=== PATIENT | female | born 1955 | race Caucasian/White ===

== ENCOUNTER → 2016-10-26 | Outpatient (CLI) | payer MEDICARE | LOC: SL 20:52 | PROVIDERS: ATTEND Family Medicine | DX: G47.33 Obstructive sleep apnea (adult) (pediatric) (principal); I10 Essential (primary) hypertension; R06.83 Snoring ==

== ENCOUNTER → 2016-11-16 | Outpatient (CLI) | payer MEDICARE | LOC: SL 20:30 | PROVIDERS: ATTEND Family Medicine | DX: G47.33 Obstructive sleep apnea (adult) (pediatric) (principal) ==

== ENCOUNTER → 2019-09-05 | Outpatient (CLI) | payer MEDICARE ==
--- NOTE | 2019-09-05 16:54 | MAM ---
EXAM DESCRIPTION: 3D Screening BILATERAL : Digital Mammography. CLINICAL HISTORY: 63 years Female ANNUAL SCREENING . No complaints. No personal history of breast cancer. Mother with breast cancer unknown age. Remote family history of breast cancer. Menarche age 13. Childbirth age 21. Menopause age 37 no HRT. Lifetime risk of developing breast cancer (Tyrer-Cuzick model)(%): COMPARISON: 2-D digital screening bilateral mammography. 08 September 2010. Prior report not available. TECHNIQUE: Bilateral CC and MLO projection full-field images, digital tomosynthesis mammographic technique Bilateral digital 2-D full-field MLO images. CAD not available for tomosynthesis or 2-D images. FINDINGS: The breast parenchymal density pattern is: Heterogeneously dense breast tissue, which may obscure small masses. No skin thickening or nipple retraction. Multiple marker superior lateral posterior right breast near the axilla. Round mass density almost 1 cm diameter stable in the upper outer quadrant middle third right breast. Bilateral solitary microcalcifications, which have increased since the prior study. Focal asymmetry anterior superior left breast stable since the prior study. Partially circumscribed mass and partially ill-defined margins middle third left breast approximately 8 cm from the nipple. No definite calcifications.. IMPRESSION: BI-RADS CATEGORY: 0 - INCOMPLETE- Need additional imaging evaluation. FOLLOW-UP: Recall for additional imaging: Bilateral full-field LM projection 2-D and tomosynthesis images. Bilateral directed breast ultrasound to the regions of interest. Written communication concerning the IMPRESSION and Follow-up, will be mailed to the patient and referring health care provider. Electronically signed by: Wiley Byrnes MD 09/05/2019 4:53 PM RECORD CLERK
== END ==
LOC: MAMMO 08:00
PROVIDERS: ATTEND Obstetrics & Gynecology
DX: Z12.31 Encounter for screening mammogram for malignant neoplasm of breast (principal)

== ENCOUNTER → 2019-09-18 | Outpatient (CLI) | payer MEDICARE ==
--- NOTE | 2019-09-18 16:28 | US ---
EXAM DESCRIPTION: 3D Diagnostic, Bilateral (accession [id number]), Breast,Bilateral (accession [id number]): Ultrasound CLINICAL HISTORY: 63 yearsFemaleABNORMAL MAMMO . Follow-up abnormal screening. No personal history of breast cancer. Mother with breast cancer. Remote family history of breast and ovarian cancer. Menarche age 13. Childbirth age 21. Menopause age 30. No HRT Lifetime risk of developing breast cancer (Tyrer-Cuzick model)(%): 6.0. COMPARISON: Bilateral screening digital breast tomosynthesis third of September 2019. TECHNIQUE: Bilateral LM projection full-field images, digital tomosynthesis technique. Bilateral 2-D digital full-field images: CC and LM projections. CAD not available. Transcutaneous scanning of the bilateral breasts utilizing campos-scale and Doppler modes. Scanning performed by the contribution solicitor and Dr. Byrnes. FINDINGS: The breast parenchymal density pattern is: Heterogeneously dense breast tissue, which may obscure small masses. No skin thickening or nipple retraction . Mass density or densities at the 9:30 position of the middle third of the right breast approximately 7 cm from the nipple. No abnormal microcalcifications. Focal asymmetry in the middle third of the left breast approximately 6 cm from the nipple slightly medial to the posterior nipple line. No abnormal microcalcifications. Ultrasound: Scanning at the 9:00 sector of the middle third right breast 6 cm from the nipple. Hypoechoic circumscribed object with eccentric echogenic hilum consistent with a lymph node. Wider than tall orientation with no posterior features and nonvascular. Dimensions are 8.6 x 5.4 x 5.3 mm. Anechoic circumscribed object in the adjacent tissues nonvascular with posterior acoustic enhancement measuring 7.1 x 6.9 mm consistent with a cyst. A second lymph node with wider than tall orientation and posterior acoustic enhancement measures 7.8 x 7.3 mm. Nonvascular. Scanning of the left breast 7 cm from the nipple lateral and medial to the posterior nipple line with no dominant solid mass or distinct cyst. No parenchymal edema or large calcifications. No overlying skin changes. IMPRESSION: Benign exam. BIRAD CATEGORY: 2 BENIGN FINDINGS. RECOMMENDATIONS: FOLLOW UP: Return to routine digital bilateral mammographic screening, one year interval from September 2019. Written communication explaining the IMPRESSION and follow-up, will be mailed to the patient and referring health care provider. The FINDINGS and the FOLLOW-UP plan were reviewed in person with the patient after the examination. According to the [employer], yearly mammograms are recommended starting at age 40 and continuing as long as a woman is in good health. Any breast change noted on a breast self-exam should be reported promptly to the patient's healthcare provider. Breast MRI is recommended for women with an approximately 20-25% or greater lifetime risk of breast cancer, including women with a strong family history of breast or ovarian cancer and women who have been treated for Hodgkin's disease. A negative mammographic report should not delay tissue diagnosis in patients with significant clinical history or physical findings. Extremely dense breast tissue limits the sensitivity of digital mammography. Electronically signed by: Wiley Byrens MD 09/18/2019 4:26 PM [facility]
== END ==
LOC: MAMMO 10:00
PROVIDERS: ATTEND Obstetrics & Gynecology
DX: R92.8 Other abnormal and inconclusive findings on diagnostic imaging of breast (principal)
CPT/HCPCS: 76641; 77066; G0279

== ENCOUNTER → 2020-07-03 | Outpatient (CLI) | payer MEDICARE | LOC: GMA MATASK 11:03 | PROVIDERS: ATTEND Family Medicine | DX: I10 Essential (primary) hypertension (principal); E11.9 Type 2 diabetes mellitus without complications ==

== ENCOUNTER → 2020-11-07 | Outpatient (CLI) | payer MEDICARE ==
--- NOTE | 2020-11-07 17:19 | MAM ---
EXAM DESCRIPTION: 3D Screening BILATERAL : Digital Mammography. CLINICAL HISTORY: 65 years Female screening . No complaints. Mother with breast cancer age 55. Sister with cervical cancer age 28. Menarche age 13. Childbirth age 21. Hysterectomy age unknown. No HRT. Lifetime risk of developing breast cancer (Tyrer-Cuzick model)(%): 13.2. COMPARISON: Bilateral screening digital breast tomosynthesis September 2019 and bilateral diagnostic breast tomosynthesis same month. TECHNIQUE: Bilateral CC and MLO projection full-field images, digital tomosynthesis mammographic technique. Bilateral digital 2-D full-field MLO images. CAD available for 2-D images. FINDINGS: The breast parenchymal density pattern is: Scattered areas of fibroglandular density. Solitary microcalcifications. Circumscribed mass density upper outer quadrant middle third right breast stable. No skin thickening or nipple retraction No new focal, stellate mass or density, focal asymmetry , and no suspicious microcalcifications bilaterally. Stable mammograms compared to prior study. IMPRESSION: Benign exam. BIRAD CATEGORY: 2 BENIGN FINDINGS. RECOMMENDATIONS: FOLLOW UP: Routine digital bilateral mammographic screening, one year interval from November 2020. Written communication explaining the IMPRESSION and follow-up, will be mailed to the patient and referring health care provider. According to the [employer], yearly mammograms are recommended starting at age 40 and continuing as long as a woman is in good health. Any breast change noted on a breast self-exam should be reported promptly to the patient's healthcare provider. Breast MRI is recommended for women with an approximately 20-25% or greater lifetime risk of breast cancer, including women with a strong family history of breast or ovarian cancer and women who have been treated for Hodgkin's disease. A negative mammographic report should not delay tissue diagnosis in patients with significant clinical history or physical findings. Extremely dense breast tissue limits the sensitivity of digital mammography. Electronically signed by: Wiley Byrnes MD 11/07/2020 5:17 PM FILM RENTAL CLERK
== END ==
LOC: MAMMO 13:32
PROVIDERS: ATTEND Obstetrics & Gynecology
DX: Z12.31 Encounter for screening mammogram for malignant neoplasm of breast (principal)